=== PATIENT | male | born 1990 | race Caucasian/White ===

== ENCOUNTER 2017-03-13 10:28 | Emergency (ER) | payer SELFPAY ==
[~2017-03-13] VITALS: Ht 185.4 cm; Wt 68.0 kg
--- OUTSIDE RECORDS SUMMARY | 2017-03-13 10:34 | XMS REPORT | Continuity of Care Document ---
Demographics Preferred Language Unknown Marital Status Unknown Jain Affiliation Unknown Race Unknown Ethnic Group Unknown Author Author [facility] Address Unknown Phone Unavailable Allergies Active Description Code Type Severity Reaction Onset Reported/Identified Relationship to Patient Clinical Status Yes aspirin Drug Allergy 12/17/2008 Yes codeine Drug Allergy 12/17/2008 Medications Problems Date Dx Coded Attending Type Code Diagnosis Diagnosed By 01/23/2008 296.80 MO BIPOLAR NOS 01/23/2008 299.80 DV ASPERGERS 01/23/2008 317 MILD MENTAL RETARDATION 01/31/2008 V05.4 VARICELLA, [place] 12/17/2008 724.2 lower back pain 06/10/2009 V70.5 PREEMPLOYMENT/PRESCHOOL EXAM 02/05/2010 724.5 BACKACHE UNSPECIFIED 02/05/2010 V70.0 GENERAL MEDICAL EXAM, ROUTINE, AT HEALTH CARE FACILITY 03/31/2010 304.30 CANNABIS DEPENDENCE UNSPECIFIED USE 04/07/2010 313.81 CD OPPOSITIONAL DEFIANT 04/07/2010 314.01 ADHD COMBINED Procedures Results Encounters ACCT No. Visit Date/Time Discharge Status Pt. Type Provider Facility Loc./Unit Complaint [id number] 07/04/2010 00:00:00 07/04/2010 23: 59:59 CLS Outpatient
--- OUTSIDE RECORDS SUMMARY | 2017-03-13 10:34 | XMS REPORT ---
Author Author ALENA CARMEN Organization [employer] Address Unknown Phone Unavailable Care Team Providers Care Sack Department Supervisor Name Role Phone ALENA CARMEN CP Unavailable Allergies No Known Allergies Problems No Known Problems Medications Medication Code System Code Instructions Start Date End Date Status Dosage Seroquel [facility] [address]-11 300 MG Orally Once a day Mar 23, 2016 1 tablet at bedtime Results No Known Results Summary Purpose [employer] Submission
--- OUTSIDE RECORDS SUMMARY | 2017-03-13 10:34 | XMS REPORT ---
Author ALENA Stephens [facility] Address [facility] [place] [address] Care Team Providers Care Scuba Diving Teacher Name Role Phone ALENA CARMEN Unavailable PROBLEMS Type Condition ICD9-CM Code [id number] Code Onset Dates Condition Status SNOMED Code Assessment Anxiety F41.9 Feb, Active 21358751 ALLERGIES Unknown Allergies SOCIAL HISTORY No smoking Hx information available PLAN OF CARE VITAL SIGNS Weight 155 lbs 2016-02-24 Heart Rate 60 bpm 2016-02-24 Respiratory Rate 16 2016-02-24 Blood pressure systolic 110 mmHg 2016-02-24 Blood pressure diastolic 70 mmHg 2016-02-24 MEDICATIONS Unknown Medications RESULTS No Results PROCEDURES Procedure Date Ordered Related Diagnosis Body Site Office Visit, New Pt., Level 2 Feb 24, 2016 IMMUNIZATIONS No Known Immunizations
--- NOTE | 2017-03-13 11:19 | ED General ---
General Chief Complaint: General Problems/Pain Stated Complaint: BILAT WRIST PAIN/L SIDE BODY PAIN Nursing Triage Note: Patient reports getting out of skilled nursing 10 days ago and riding a bike for the first time 2 days ago, patient reports hurting all over since riding the bike for several hours Nursing Sepsis Screen: No Definite Risk Source of Information: Patient Exam Limitations: No Limitations History of Present Illness Time Seen by Provider: 11:19 Initial Comments 26-year-old male patient presents to the emergency department complains of generalized muscle aches. Patient states he had gotten out of skilled nursing 10 days ago and was riding a bike 2 days ago for approximately 12-16 hours. Now complains of generalized muscle aches with greatest muscle aches on the left side. Also complains of redness and swelling to the left wrist and right ankle. Denies fever or chills. Denies known injury. Denies IV drug use. Timing/Duration: 1-2 Days Modifying Factors: worse with Other (worse with ) Allergies and Home Medications Allergies Coded Allergies: Aspirin (Unverified Allergy, Mild, HIVES, 03/29/10) Codeine (Unverified Allergy, Mild, HIVES, 03/29/10) Uncoded Allergies: WASP (Allergy, Severe, EDEMA, 03/29/10) Home Medications Cyclobenzaprine HCl 10 Mg Tablet, 10 MG PO Q8H PRN for SPASMS, #6 Ref 0 Prescribed by: ELAN ALTAMIRANO on 03/13/17 115 Diclofenac Sodium 75 Mg Tablet.dr, 75 MG PO BID PRN for PAIN-MODERATE, #14 Ref 0 Prescribed by: ELAN ALTAMIRANO on 03/13/17 115 Sulfamethoxazole/Trimethoprim 1 Each Tablet, 1 EACH PO BID, #20 Ref 0 Prescribed by: ELAN ALTAMIRANO on 03/13/17 1152 Constitutional: No chills, No dizziness, No fever, No malaise EENTM: no symptoms reported Respiratory: No cough, No short of breath Cardiovascular: No chest pain, No palpitations Gastrointestinal: no symptoms reported Musculoskeletal: see HPI, joint pain, joint swelling Skin: see HPI, change in color (erythema left wrist and right ankle) Psychiatric/Neurological: No Symptoms Reported All Other Systems Reviewed Negative Unless Noted: Yes (Negative excepted noted.) Past Dyfvjmm-Qatvwx-Tmymsb Hx Patient Social History Alcohol Use: Denies Use Recreational Drug Use: No Smoking Status: Current Everyday Smoker Type Used: Cigarettes Recent Foreign Travel: No Contact w/Someone Who Travel: No Recent Infectious Disease Expo: No Physical Abuse: No Sexual Abuse: No Surgeries History of Surgeries: No Respiratory History of Respiratory Disorde: No Cardiovascular History of Cardiac Disorders: No Neurological History of Neurological Disord: No Genitourinary History of Genitourinary Disor: No Gastrointestinal History of Gastrointestinal Di: No Musculoskeletal History of Musculoskeletal Dis: No Endocrine History of Endocrine Disorders: No HEENT History of HEENT Disorders: No Cancer History of Cancer: No Psychosocial History of Psychiatric Problem: Yes Behavioral Health Disorders: Personality Disorder Suicide Risk Score: 0 Integumentary History of Skin or Integumenta: No Blood Transfusions History of Blood Disorders: No Reviewed Nursing Assessment Reviewed/Agree w Nursing PMH: Yes Family Medical History Significant Family History: No Pertinent Family Hx Physical Exam Vital Signs Vital Sign - Last 12Hours 03/13/17 10:46 Temp 98.2 Pulse 99 Resp 18 B/P (MAP) 125/70 Pulse Ox 99 Capillary Refill : Less Than 3 Seconds General Appearance: No Apparent Distress, WD/WN HEENT: PERRL/EOMI, Pharynx Normal Neck: Normal Inspection, Non Tender, Supple Respiratory: Lungs Clear, Normal Breath Sounds, No Accessory Muscle Use, No Respiratory Distress Cardiovascular: Regular Rate, Rhythm, No Edema, No Murmur, Normal Peripheral Pulses Back: No Vertebral Tenderness, No Decreased Range of Motion, Muscle Spasm, Other (generalized paraspinous muscle tenderness. Scattered pustules over the back without erythema, warmth, or drainage.) Extremity: Normal Capillary Refill, Normal Range of Motion, No Calf Tenderness , No Pedal Edema, Inflammation (left posterior wrist shows a 3x4 cm area of erythema, warmth, and tenderness. a 2x4 cm area of erythema, warmth, and tenderness noted on the rt anterior ankle.), Other (scattered pustules over the bilateral upper extremities) Neurologic/Psychiatric: Alert, Oriented x3, No Motor/Sensory Deficits, Normal Mood/Affect Skin: Normal Color, Warm/Dry, Rash (scattered pustules noted on the bilateral upper extremities, torso, and back (patient reports a h/o acne that progressively had gotten worse in correction. also reports mosquito bites of the posterior forearms bilaterally.)), Other (left posterior wrist shows a 3x4 cm area of erythema, warmth, and tenderness. a 2x4 cm area of erythema, warmth, and tenderness noted on the rt anterior ankle.) Progress/Results/Core Measures Results/Orders My Orders Orders - ELAN ALTAMIRANO Ibuprofen Tablet (Motrin Tablet) (03/13/17 11:53) Vital Signs/I&O Vital Sign - Last 12Hours 03/13/17 10:46 Temp 98.2 Pulse 99 Resp 18 B/P (MAP) 125/70 Pulse Ox 99 Blood Pressure Mean: 88 Departure Communication (Admissions) Progress Notes patient seen and evaluated. plan for dsch to home with prescriptions for diclofenac, flexeril, and bactrim DS. Patient to follow-up with the primary care physician of his choice. Impression Impression: Primary Impression: Cellulitis of wrist Additional Impressions: Cellulitis of right ankle Folliculitis Muscle strain Disposition: HOME, SELF-CARE Condition: Improved Departure-Patient Inst. Decision time for Depature: 11:49 Referrals: NO,LOCAL PHYSICIAN (PCP/Family) Primary Care Physician Patient Instructions: Cellulitis (Skin Infection), Adult (DC), Muscle Strain ( DC) Add. Discharge Instructions: All discharge instructions reviewed with patient and/or family. Voiced understanding. Medications as instructed. Tylenol Extra Strength over-the- counter as directed for pain. Shower with antibacterial soap. Follow-up with your primary care physician of choice for recheck if no improvement in symptoms. Return in the emergency department for worsened redness, drainage, fever, or any other concerns. Scripts Cyclobenzaprine HCl (Cyclobenzaprine HCl) 10 Mg Tablet 10 MG PO Q8H Y for SPASMS, #6 TAB 0 Refills Prov: ELAN ALTAMIRANO 03/13/17 Diclofenac Sodium (Diclofenac Sodium) 75 Mg Tablet.dr 75 MG PO BID Y for PAIN-MODERATE, #14 TAB 0 Refills Prov: ELAN ALTAMIRANO 03/13/17 Sulfamethoxazole/Trimethoprim (Bactrim Ds Tablet) 1 Each Tablet 1 EACH PO BID, #20 TAB 0 Refills Prov: ELAN ALTAMIRANO 03/13/17 Work/School Note: Local Medical Staff Listing Images Extremities-Lower 1 - Cellulitis, Tenderness Extremities-Upper 1 - Cellulitis, Swelling, Tenderness 2 - Other-See Progress Note (scab consistent with puncture site) ELAN ALTAMIRANO Mar 13, 2017 11:19
[2017-03-13] MEDS ORDERED: SULF1TAB35 PO (11:52)
[2017-03-13] MEDS ORDERED: CYCL10TA9 PO (11:52)
[2017-03-13] MEDS ORDERED: DICL75TA2 PO (11:52)
[2017-03-13] MEDS ORDERED: IBUPROFEN 800 MG (MOTRIN) TAB PO STA (11:53)
[2017-03-13 12:04] VITALS: BP 125/70
== END 2017-03-13 12:03 | disposition home or self-care (01) ==
LOC: EDUNIT# 10:28 → ER 10:32
DX: S39.012A Strain of muscle, fascia and tendon of lower back, initial encounter (principal); L03.114 Cellulitis of left upper limb; L03.115 Cellulitis of right lower limb; L73.9 Follicular disorder, unspecified; F60.9 Personality disorder, unspecified; F17.210 Nicotine dependence, cigarettes, uncomplicated; X58.XXXA Exposure to other specified factors, initial encounter
CPT/HCPCS: 99283